=== PATIENT | female | born 1970 | race Caucasian/White ===

== ENCOUNTER 2018-01-02 08:51 | Outpatient (CLI) | payer OTHER ==
--- NOTE | 2018-01-03 10:43 | Mammography Report ---
DIGITAL SCREENING MAMMOGRAM: 01/02/2018 HISTORY: Routine. COMPARISON: 08/18/2015, 07/13/2011 and 07/06/2009. TECHNIQUE: Bilateral digital CC, exaggerated CC and MLO projections. FINDINGS: The breast tissue is heterogeneously dense. There is no dominant mass, skin thickening, architectural distortion, suspicious microcalcifications, or obvious interval change. IMPRESSION: NEGATIVE. BI-RADS CODE 1-NEGATIVE. SUGGEST RETURN TO ROUTINE SCREENING IN 12 MONTHS. STANDARD QUALIFYING STATEMENTS: 1. This examination was reviewed with the aid of Computer-Aided Detection (CAD). 2. A negative or benign imaging report should not delay biopsy if clinically suspicious findings are present. Consider surgical consultation if warranted. More than 5% of cancers are not identified by imaging. 3. Dense breasts may obscure an underlying neoplasm. TD: 01/03/2018 10:42
== END 2018-01-02 08:52 | disposition home or self-care (01) ==
LOC: DI 08:51
PROVIDERS: ATTEND Physician Assistant Medical
DX: Z12.31 Encounter for screening mammogram for malignant neoplasm of breast (principal)
CPT/HCPCS: 77067

== ENCOUNTER 2018-03-11 09:15 | Outpatient (CLI) | payer OTHER ==
[2018-03-11 09:29] LABS: BASOPHILS # (AUTO) 0.1 10^3/uL (0.0-0.1); EOSINOPHILS # (AUTO) 0.1 10^3/uL (0.0-0.7); EOSINOPHILS % (AUTO) 1.8 %; HGB - HEMOGLOBIN 13.3 g/dL (12.0-16.0); LYMPHOCYTES # (AUTO) 1.9 10^3/uL (1.5-3.5); LYMPHOCYTES % (AUTO) 38.7 %; MEAN CORPUSCULAR HEMOGLOBIN 29.2 pg (27.0-31.0); MEAN CORPUSCULAR HGB CONC 33.2 g/dL (32.0-36.0); MEAN CORPUSCULAR VOLUME 87.9 fL (81.0-99.0); MEAN PLATELET VOLUME 8.1 fL (7.9-10.8); MONOCYTES # (AUTO) 0.3 10^3/uL (0.0-1.0); MONOCYTES % (AUTO) 6.4 %; NEUTROPHILS # (AUTO) 2.6 10^3/uL (1.5-6.6); NEUTROPHILS % (AUTO) 52.1 %; PLT - PLATELET COUNT 215 10^3/uL (130-450); RED BLOOD COUNT 4.56 10^6/uL (4.20-5.40); RED CELL DISTRIBUTION WIDTH 13.5 % (12.0-15.0); WHITE BLOOD COUNT 4.9 x10^3/uL (4.8-10.8)
[2018-03-11 09:43] LABS: CHOL/HDL RATIO 2.1 (<4.4); CHOLESTEROL 124 mg/dL; GLUCOSE,FASTING 92 mg/dL (70-100); HDL CHOLESTEROL 58 mg/dL; LDL CHOLESTEROL,CALCULATED 58 mg/dL; VLDL CHOLESTEROL 8 mg/dL
[2018-03-11 09:46] LABS: HB2 TOTAL 14.7 g/dL; HEMOGLOBIN A1C 0.52 g/dL; HEMOGLOBIN A1C % 5.4 % (4.6-6.2)
[2018-03-11 10:28] LABS: THYROID STIMULATING HORMONE 1.31 uIU/mL (0.34-5.60)
[2018-03-11 10:56] LABS: FOLLICLE STIMULATING HORMONE 68.05 mIU/mL
== END 2018-03-11 09:16 | disposition home or self-care (01) ==
LOC: LAB 09:15
PROVIDERS: ATTEND Registered Nurse
DX: Z01.419 Encounter for gynecological examination (general) (routine) without abnormal findings (principal)
CPT/HCPCS: 36415; 80061; 82947; 83001; 83036; 83721; 84443; 85025

== ENCOUNTER 2018-05-08 09:45 | Outpatient (CLI) | payer OTHER ==
--- NOTE | 2018-05-08 16:05 | MRI Report ---
Procedure Date: 05/08/2018 Accession Number: [id number] / [id number] Procedure: MRI - Knee LT W/O CPT Code: FULL RESULT: EXAM: LEFT KNEE MRI WITHOUT CONTRAST EXAM DATE: 05/08/2018 10:27 AM. CLINICAL HISTORY: Chronic left knee pain. COMPARISON: None. TECHNIQUE: Multiplanar, multisequence T1-weighted and fluid-sensitive sequences of the knee without contrast. Other: None. FINDINGS: Bones and articular cartilage: Marginal osteophytes at the femoral condyles, tibial plateau, patella, and femoral trochlea. Focal grade 3 chondromalacia at the central aspect of the medial femoral condyle. Grade 2 chondromalacia at the medial tibial plateau. Subchondral osteophytes and grade 3-4 chondromalacia at the posterior aspect of the lateral femoral condyle. Grade 3 chondromalacia at the posterior aspect of the lateral tibial plateau. Grade 3-4 chondromalacia and subchondral osteophyte at the posterior superior aspect of the lateral femoral condyle. Focal grade 3-4 chondromalacia at the anterolateral aspect of the lateral femoral condyle. Grade 3-4 chondromalacia at the femoral trochlear groove. Grade 2 chondromalacia at the lateral trochlear facet. Grade 2-3 chondromalacia at the patella. Full-thickness articular cartilage fissures at the patella. No patellar subluxation. No acute fracture or bone lesions. Medial Meniscus: Minimal free edge fraying at the posterior horn and midbody. No definite tear. Lateral Meniscus: The lateral meniscus is intact. Cruciate Ligaments: The anterior and posterior cruciate ligaments are intact. Collateral Ligaments: The medial collateral and lateral collateral ligamentous structures are intact. Tendons: The quadriceps, patellar, semimembranosus, and popliteus tendons are unremarkable. Musculature: No edema or fatty atrophy. Other: Small joint effusion. Small popliteal cyst. No loose bodies. The medial and lateral retinacula are intact. Mild subcutaneous edema anterior to the patellar tendon. IMPRESSION: 1. Tricompartmental osteoarthritis. 2. Minimal free edge fraying at the posterior horn and midbody of the medial meniscus. No tear. 3. Small joint effusion and popliteal cyst. RADIA MUSCULOSKELETAL RADIOLOGY SECTION
== END 2018-05-08 09:46 | disposition home or self-care (01) ==
LOC: DI 09:45
PROVIDERS: ATTEND Physician Assistant Medical
DX: M17.12 Unilateral primary osteoarthritis, left knee (principal); M25.462 Effusion, left knee; M71.22 Synovial cyst of popliteal space [Baker], left knee

== ENCOUNTER 2019-05-13 06:46 | Day surgery (SDC) | payer OTHER ==
[2019-05-13] MEDS ORDERED: LACTATED RINGERS 1,000 ML IV ONE (06:52)
[2019-05-13] MEDS ORDERED: fentaNYL 250 MCG/5 ML VIAL IVP ONE (08:05)
[2019-05-13] MEDS ORDERED: MIDAZOLAM 2 MG/2 ML VIAL IVP ONE (08:05)
[2019-05-13] MEDS ORDERED: LIDOCAINE 2%-EPI 1:100000 20 ML MDV TOP ONE (08:17)
[2019-05-13] MEDS ORDERED: LIDOCAINE JELLY 2% 5 ML TUBE TOP ONE (08:25)
[2019-05-13 09:09] VITALS: BP 119/89
[2019-05-13] MEDS ORDERED: ONDANSETRON 4 MG/2 ML VIAL ONE (09:13)
== END 2019-05-13 06:47 | disposition home or self-care (01) ==
LOC: SDS 06:46
PROVIDERS: ATTEND Surgery
PROC: 0DJD8ZZ Inspection of Lower Intestinal Tract, Via Natural or Artificial Opening Endoscopic (ICD-10-PCS; principal; 2019-05-13 08:00)
DX: Z12.11 Encounter for screening for malignant neoplasm of colon (principal); Z87.891 Personal history of nicotine dependence
CPT/HCPCS: 45378; J3010; J3490; J7120

== ENCOUNTER 2020-08-18 07:00 | Outpatient (CLI) | payer OTHER | END 2020-08-18 23:59 | disposition home or self-care (01) | LOC: COV 07:00 | PROVIDERS: ATTEND Family Medicine | DX: Z20.828 Contact with and (suspected) exposure to other viral communicable diseases (principal) ==

== ENCOUNTER 2020-11-14 14:31 | Outpatient (CLI) | payer OTHER ==
--- NOTE | 2020-11-15 12:46 | Mammography Report ---
BILATERAL DIGITAL SCREENING MAMMOGRAM 3D/2D: 11/14/2020 CLINICAL: Routine screening. Routine screening. Comparison is made to exams dated: 01/02/2018 mammogram - [facility], 08/18/2015 [facility], and 07/13/2011 mammogram - [facility]- Radiology Consultations. There are scattered f ibroglandular elements in both breasts. No significant masses, calcifications, or other findings are seen in either breast. There has been no significant interval change. IMPRESSION: NEGATIVE There is no mammographic evidence of malignancy. A 1 year screening mammogram is recommended. This exam was interpreted at Station ID: [id number]. NOTE: For mammograms, a report in lay terms will be sent to the patient. Approximately 15% of breast malignancies will not be visualized mammographically. In the management of a palpable breast mass, a negative mammogram must not discourage biopsy of a clinically suspicious lesion. Electronically Signed By: Jamar Chavarria M.D. ddp/penrad:11/14/2020 15:05:50 ACR BI-RADS Category 1: Negative 3341F PARENCHYMAL PATTERN: (A) - The breast(s) demonstrate(s) scattered fibroglandular densities. BI-RADS CATEGORY: (1) - 1 RECOMMENDATION: (ANNUAL) - Recommend routine annual screening mammography. [id number] 1 year screening LATERALITY: (B)
== END 2020-11-14 14:32 | disposition home or self-care (01) ==
LOC: DI 14:31
DX: Z12.31 Encounter for screening mammogram for malignant neoplasm of breast (principal)

== ENCOUNTER 2021-03-16 08:30 | Outpatient (CLI) | payer OTHER ==
--- NOTE | 2021-03-16 10:00 | XRAY Report ---
PROCEDURE: Knee 3 View RT INDICATIONS: KNEE PAIN, RIGHT TECHNIQUE: 3 views of the right knee(s) were acquired. COMPARISON: None. FINDINGS: Bones: No significant degenerative changes are identified. There are no erosions. On the patellar vie w medially along the medial patellar condyle there is a 4 x 1.5 mm bone density which has the appeara nce of a chip of bone of an osteochondral lesion. Soft tissues: A large suprapatellar joint effusion is present. No suspicious soft tissue calcificati ons. IMPRESSION: 1. Large suprapatellar joint effusion suggests internal derangement. 2. 4 x 1.5 mm bone density, possibly an osteochondral lesion along the medial femoral condyle at the patellofemoral articular surface. 3. Recommend MRI of the right knee to better evaluate. Reviewed by: Abel Yeboah on 03/16/2021 9:58 AM PDT Approved by: Abel Yeboah on 03/16/2021 9:58 AM PDT Station ID: [id number]
== END 2021-03-16 08:31 | disposition home or self-care (01) ==
LOC: DI.N 08:30
PROVIDERS: ATTEND Physician Assistant Medical
DX: M25.461 Effusion, right knee (principal); R93.6 Abnormal findings on diagnostic imaging of limbs

== ENCOUNTER 2021-03-22 07:16 | Outpatient (CLI) | payer OTHER ==
--- NOTE | 2021-03-22 10:27 | MRI Report ---
PROCEDURE: Knee RT W/O INDICATIONS: RIGHT KNEE PAIN TECHNIQUE: Noncontrast sagittal PD fast spin echo and T2 fast spin echo with fat saturation, sagittal 3-D gradie nt sequence with fat saturation; coronal T1 spin echo and PD fast spin echo with fat saturation, and axial PD fast spin echo with fat saturation through the knee. COMPARISON: X-ray right knee, 3 views, 03/16/2021. FINDINGS: Image quality: Excellent. Menisci: There is lateral meniscal extrusion. No melanie meniscal tear. The free edge of the study of the lateral meniscus is flattened. Small meniscal cysts are seen adjacent to the posterior horn of th e lateral meniscus. The medial meniscus demonstrates normal morphology and internal signal. The meni scal root ligaments appear intact. Cruciate ligaments: The anterior and posterior cruciate ligaments appear intact. There are couple o f cysts measuring 6 mm and 4 mm adjacent and posterior to the posterior cruciate ligament. Medial structures: The medial collateral ligament appears intact. The posterior semimembranosus ten don insertions and meniscocapsular junction appear intact. Visualized portions of the pes anserinus tendons appear normal. No abnormal bursal fluid. Lateral structures: The lateral collateral ligament and biceps femoris tendon appear intact. The po pliteus tendon appears normal. Iliotibial band appears normal. Anterior structures: The quadriceps and patellar tendons appear intact. Patellar alignment is yogesh l. No femoral trochlear dysplasia or ventral trochlear prominence. No edema in the infrapatellar fa t pad. Small prepatellar fluid collection. Bones and cartilage: No bone marrow contusions or fractures. No osteochondral lesion in the medial femoral condyle. Mild tricompartmental malacia, most pronounced in the patellofemoral joint. Joint space: There is knee joint effusion. There is a tiny Greene?s cyst. There is also a tiny synovi al cyst adjacent to the proximal tibiofibular joint. Normal appearing synovial plicae are incidentall y noted. IMPRESSION: 1. No subchondral lesion is seen in the medial femoral condyle. 2. Lateral meniscal extrusion. There is flattening of the free edge of the body of the lateral menisc us. Small meniscal cysts are seen adjacent to the posterior horn the lateral meniscus. No melanie menis daylin tear. 3. Small posterior cruciate ligament cysts measuring 6 mm and 4 mm. 4. 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 5. Moderate knee joint effusion. Reviewed by: Juwan Emery MD on 03/22/2021 10:25 AM PDT Approved by: Juwan Emery MD on 03/22/2021 10:25 AM PDT Station ID: [id number]
== END 2021-03-22 07:17 | disposition home or self-care (01) ==
LOC: DI 07:16
PROVIDERS: ATTEND Physician Assistant Medical
DX: M25.561 Pain in right knee (principal); M25.461 Effusion, right knee; M22.41 Chondromalacia patellae, right knee; M25.861 Other specified joint disorders, right knee

== ENCOUNTER 2021-05-03 07:32 | Outpatient (CLI) | payer OTHER ==
[2021-05-03 08:03] LABS: BASOPHILS % (AUTO) 0.8 %; EOSINOPHILS # (AUTO) 0.1 10^3/uL (0.0-0.7); EOSINOPHILS % (AUTO) 2.6 %; HCT - HEMATOCRIT 44.4 % (37.0-47.0); HGB - HEMOGLOBIN 14.2 g/dL (12.0-16.0); LYMPHOCYTES # (AUTO) 1.9 10^3/uL (1.5-3.5); LYMPHOCYTES % (AUTO) 37.5 %; MEAN CORPUSCULAR HEMOGLOBIN 28.5 pg (27.0-31.0); MEAN CORPUSCULAR VOLUME 89.2 fL (81.0-99.0); MEAN PLATELET VOLUME 10.4 fL (7.9-10.8); MONOCYTES # (AUTO) 0.3 10^3/uL (0.0-1.0); MONOCYTES % (AUTO) 6.1 %; NEUTROPHILS # (AUTO) 2.7 10^3/uL (1.5-6.6); NEUTROPHILS % (AUTO) 52.8 %; PLT - PLATELET COUNT 231 10^3/uL (130-450); RED BLOOD COUNT 4.98 10^6/uL (4.20-5.40); RED CELL DISTRIBUTION WIDTH 13.7 % (12.0-15.0); WHITE BLOOD COUNT 5.1 x10^3/uL (4.8-10.8)
[2021-05-03 08:12] LABS: ALBUMIN 4.6 g/dL (3.2-5.5); ALBUMIN/GLOBULIN RATIO 1.3 (1.0-2.2); ALKALINE PHOSPHATASE 64 IU/L (42-121); ALT ALANINE AMINOTRANSFERASE 35 IU/L (10-60); AST ASPARTATE AMINOTRANSFERASE 32 IU/L (10-42); BILIRUBIN,TOTAL 1.3 mg/dL (0.2-1.0); BUN - BLOOD UREA NITROGEN 13 mg/dL (6-20); CALCIUM 9.2 mg/dL (8.5-10.3); CARBON DIOXIDE - CO2 29 mmol/L (21-32); CHLORIDE 105 mmol/L (101-111); CHOL/HDL RATIO 2.8 (<4.4); CHOLESTEROL 170 mg/dL; CREATININE 0.8 mg/dL (0.4-1.0); GFR - MDRD 75 (>89); GLUCOSE 108 mg/dL (70-100); HDL CHOLESTEROL 60 mg/dL; LDL CHOLESTEROL,CALCULATED 99 mg/dL; LDL/HDL RATIO 1.7 (<4.4); POTASSIUM 3.3 mmol/L (3.5-5.0); SODIUM 143 mmol/L (135-145); TOTAL PROTEIN 8.2 g/dL (6.7-8.2); TRIGLYCERIDES 55 mg/dL; VLDL CHOLESTEROL 11 mg/dL
[2021-05-03 08:23] LABS: THYROID STIMULATING HORMONE 1.25 uIU/mL (0.34-5.60)
== END 2021-05-03 07:33 | disposition home or self-care (01) ==
LOC: LAB 07:32
PROVIDERS: ATTEND Physician Assistant Medical
DX: Z00.00 Encounter for general adult medical examination without abnormal findings (principal)
CPT/HCPCS: 36415; 80053; 80061; 83721; 84443; 85025

== ENCOUNTER 2022-12-10 09:43 | Outpatient (CLI) | payer OTHER ==
--- NOTE | 2022-12-11 10:36 | Mammography Report ---
BILATERAL DIGITAL SCREENING MAMMOGRAM 3D/2D: 12/10/2022 CLINICAL: Routine screening. Comparison is made to exams dated: 11/14/2020 mammogram, 01/02/2018 mammogram - [facility], and 08/18/2015 mammogram - [facility]- Radiology Consultations. There are scattered areas of fibroglandular density in both breasts (category b / 25%-50% glandular t issue). No significant masses, calcifications, or other findings are seen in either breast. There has been no significant interval change. IMPRESSION: NEGATIVE There is no mammographic evidence of malignancy. A 1 year screening mammogram is recommended. Based on the Tyrer Cuzick model (a risk assessment model) the patients lifetime risk is 7.4% and her 10 year risk is 2.1%. According to the ACR, ACS, and NCCN guidelines, an annual breast MRI exam clarisse g with mammogram is recommended if the patients lifetime risk is 20% or greater. This exam was interpreted at Station ID: [id number]. NOTE: For mammograms, a report in lay terms will be sent to the patient. Approximately 15% of breast malignancies will not be visualized mammographically. In the management of a palpable breast mass, a negative mammogram must not discourage biopsy of a clinically suspicious lesion. Electronically Signed By: Silas merchant/elmer:12/10/2022 18:09:28 letter sent: No_Letter ACR BI-RADS Category 1: Negative 3341F PARENCHYMAL PATTERN: (A) - The breast(s) demonstrate(s) scattered fibroglandular densities. BI-RADS CATEGORY: (1) - 1 Mammogram [id number] 1 year screening LATERALITY: (B)
== END 2022-12-10 09:44 | disposition home or self-care (01) ==
LOC: DI 09:43
DX: Z12.31 Encounter for screening mammogram for malignant neoplasm of breast (principal)